=== PATIENT | female | born 1985 | race Caucasian/White ===

== ENCOUNTER 2017-07-09 19:29 | Emergency (ER) | payer OTHER, SELFPAY ==
[2017-07-09 19:30] VITALS: BP 124/71; PULSE 100; RESP 16; TEMP 36.7; O2SAT 100; BMI 23.5
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
[2017-07-09 21:32] VITALS: BP 109/85; PULSE 69; RESP 18; O2SAT 100
== END 2017-07-09 21:32 | disposition home or self-care (01) ==
PROVIDERS: Emergency Provider Emergency Medicine
DX: S16.1XXA Strain of muscle, fascia and tendon at neck level, initial encounter (principal); S60.211A Contusion of right wrist, initial encounter; V89.2XXA Person injured in unspecified motor-vehicle accident, traffic, initial encounter; Y93.89 Activity, other specified; Y92.9 Unspecified place or not applicable; F41.9 Anxiety disorder, unspecified
CPT/HCPCS: 99282